=== PATIENT | male | born 1990 | race Caucasian/White ===

== ENCOUNTER 2022-12-22 15:56 | Emergency (ER) | payer SELFPAY ==
[~2022-12-22] VITALS: Ht 177.8 cm; Wt 63.5 kg
[~2022-12-22 15:56] MED LIST: CEPH500 PO
[2022-12-22 16:14] VITALS: BP 172/159
[2022-12-22] MEDS ORDERED: Amoxicillin500 MG PO (16:18)
== END 2022-12-22 16:22 | disposition home or self-care (01) ==
LOC: ER 15:56
DX: K04.7 Periapical abscess without sinus (principal)
CPT/HCPCS: 99282